=== PATIENT | male | born 1945 | race Caucasian/White ===

== ENCOUNTER 2018-08-01 11:27 | Emergency (ER) | payer MEDICARE, OTHER ==
--- NOTE | 2018-08-01 12:05 | RAD ---
Chest one view HISTORY: Chest injury. Pain. FINDINGS: Cardiac silhouette is magnified by projection. Pulmonary vasculature upper limits of normal . Mediastinum is midline. No lobar consolidation or evidence of pneumothorax. conveyor monitor leads overlie the chest. IMPRESSION: No active cardiopulmonary
--- NOTE | 2018-08-01 12:05 | CT ---
Exam: Head CT without contrast HISTORY: Trauma. Fall. Pain. COMPARISON: none FINDINGS: Hemorrhage: No intraparenchymal hemorrhage or extra-axial hematoma. Brain parenchyma: Age-appropriate atrophy. White matter hypodensities due to chronic small vessel isc hemic change. 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 Ventricular system: Ventricles and sulci are patent and symmetric. Calvarium: No fractures. Previous left calvarial craniotomy changes are noted. Sinuses and mastoid air cells: Adequate aeration. IMPRESSION: No intracranial post traumatic sequelae.
[2018-08-01 12:23] LABS: Bilirubin Negative (Negative); Blood, Urine Negative (Negative); Clarity Clear (Clear); Glucose, Urine (Dipstick) Negative (Negative); Leukocyte Negative (Negative); Nitrite Negative (Negative); Protein, Urine (Dipstick) 30 mg/dL (Neg-Trace); Urobilinogen 0.2 mg/dL (0.2-1.0)
[2018-08-01 12:24] LABS: Specific Gravity, Urine 1.037 (1.002-1.036)
[2018-08-01 12:27] LABS: #Basophils 0.1 thou/uL (0.0-0.2); #Eosinphils 0.1 thou/uL (0.0-0.7); #Lymphocytes 1.4 thou/uL (1.20-3.40); #Monocytes 0.4 thou/uL (0.11-0.59); #Neutrophils 2.9 thou/uL (1.40-6.50); %Basophils 1.2 % (0.0-1.0); %Eosinophils 2.4 % (0.0-10.0); %Lymphocytes 29.6 % (21.0-51.0); %Neutrophils 58.8 % (42.0-75.0); Hemoglobin 13.2 g/dL (14.0-18.0); Mean Corpuscular HGB CONC 31.9 g/dL (32.0-36.0); Mean Corpuscular Hemoglobin 28.5 pg (27.0-31.0); Mean Corpuscular Volume 89.2 fL (78.0-98.0); Platelet Count 197 thou/uL (130-400); RBC Distribution Width 12.1 % (11.5-14.5); Red Blood Cell (RBC) Count 4.64 mill/uL (4.70-6.10); White Blood Cell (WBC) Count 4.9 thou/uL (4.8-10.8)
[2018-08-01 12:30] LABS: RBC/HPF 0-3 HPF (0-3); Squamous Epithelial 0-3 HPF (0-3)
[2018-08-01 12:31] LABS: Bacteria/HPF None Seen HPF (None Seen)
[2018-08-01 12:38] LABS: ALT (SGPT) 19 U/L (8-55); AST (SGOT) 32 U/L (5-34); Alkaline Phosphatase 101 U/L (40-150); Anion Gap 16 mmol/L (10-20); BUN (Urea Nitrogen) 23 mg/dL (8.4-25.7); Bilirubin, Total 0.3 mg/dL (0.2-1.2); CK (CPK) 75 U/L (30-200); Calc. Creatinine Clearance 0 mL/min (70-130); Calcium 9.4 mg/dL (7.8-10.44); Carbon Dioxide 20 mmol/L (23-31); Chloride 109 mmol/L (98-107); Estimated GFR-MDRD 60; Globulin 2.9 g/dL (2.4-3.5); Glucose 153 mg/dL (83-110); Potassium 4.1 mmol/L (3.5-5.1); Protein, Total 6.9 g/dL (5.8-8.1); Sodium 141 mmol/L (136-145)
[2018-08-01] MEDS ORDERED: Ibuprofen 800 MG TAB ONE (12:47)
[2018-08-01] MEDS ORDERED: Sodium Chloride 0.9% 0 ML ONE (13:15)
[2018-08-01] MEDS ORDERED: Sodium Chloride 0.9% 500 ML ONE (13:16)
--- NOTE | 2018-08-01 13:26 | CT ---
CT abdomen and pelvis noncontrast HISTORY: Fall. Abdomen injury. FINDINGS: Mild atelectasis at the lung bases. Calcification throughout the arterial structures. No ev idence of urinary tract obstruction or calcification. Lack of contrast limits evaluation for other abnormalities. Postoperative and degenerative changes of the lumbar spine. Urinary bladder is intact. Prostate gland surgically absent. Diverticula arise from the colon without adjacent inflammation. Cysts of the right kidney. Small nonobstructive loop of small bowel extends through an umbilical hernia. IMPRESSION: No acute traumatic injury is demonstrated. Diverticulosis. No evidence of diverticulitis. Umbilical hernia contains a small amount of small bowel. Nonobstructed.
== END 2018-08-01 17:15 | disposition home or self-care (01) ==
LOC: NAV ERS 11:27
DX: S05.11XA Contusion of eyeball and orbital tissues, right eye, initial encounter (principal); I48.91 Unspecified atrial fibrillation; E78.5 Hyperlipidemia, unspecified; I10 Essential (primary) hypertension; F31.9 Bipolar disorder, unspecified; Z87.891 Personal history of nicotine dependence; Z79.899 Other long term (current) drug therapy; V89.9XXA Person injured in unspecified vehicle accident, initial encounter
CPT/HCPCS: 70450; 71045; 74176; 80053; 81003; 81015; 82550; 83605; 84484; 85025; 93005; 96360; J7050

== ENCOUNTER 2022-10-14 17:33 | Emergency (ER) | payer MEDICARE ==
[2022-10-14 18:04] LABS: #Basophils 0.1 thou/uL (0.0-0.2); #Eosinphils 0.1 thou/uL (0.0-0.7); #Lymphocytes 2.5 thou/uL (1.20-3.40); #Monocytes 0.8 thou/uL (0.11-0.59); #Neutrophils 4.7 thou/uL (1.40-6.50); %Basophils 1.1 % (0.0-1.0); %Eosinophils 1.8 % (0.0-10.0); %Lymphocytes 30.7 % (21.0-51.0); %Monocytes 9.3 % (0.0-10.0); %Neutrophils 57.2 % (42.0-75.0); Hemoglobin 18.6 g/dL (14.0-18.0); Mean Corpuscular HGB CONC 32.8 g/dL (32.0-36.0); Mean Corpuscular Hemoglobin 29.8 pg (27.0-31.0); Mean Corpuscular Volume 90.7 fl (78.0-98.0); Mean Platelet Volume 7.8 fL (7.4-10.4); Platelet Count 252 10x3/uL (130-400); RBC Distribution Width 11.8 % (11.5-14.5); Red Blood Cell (RBC) Count 6.26 mill/uL (4.70-6.10); White Blood Cell (WBC) Count 8.3 10x3/uL (4.8-10.8)
[2022-10-14 18:24] LABS: Acetaminophen Less than 10 mcg/mL (10.0-30.0); Salicylate Less than 8.0 mg/dL (15.0-30.0)
[2022-10-14 18:26] LABS: ALT (SGPT) 22 U/L (8-55); AST (SGOT) 23 U/L (5-34); Albumin 4.8 g/dL (3.4-4.8); Alkaline Phosphatase 134 U/L (40-110); Anion Gap 19 mmol/L (10-20); BUN (Urea Nitrogen) 19 mg/dL (8.4-25.7); Bilirubin, Total 1.2 mg/dL (0.2-1.2); Calc. Creatinine Clearance 0 mL/min (70-130); Calcium 10.1 mg/dL (7.8-10.44); Carbon Dioxide 25 mmol/L (23-31); Chloride 100 mmol/L (98-107); Estimated GFR 41; Globulin 3.7 g/dL (2.4-3.5); Glucose 167 mg/dL (83-110); Potassium 3.8 mmol/L (3.5-5.1); Protein, Total 8.5 g/dL (5.8-8.1); Sodium 140 mmol/L (136-145)
[2022-10-14 18:28] LABS: Alcohol Less than 10.0 mg/dL (Less than 10)
[2022-10-14 18:51] LABS: Amphetamine Not Detected (NotDetected); Barbiturates Screen Not Detected (NotDetected); Benzodiazepine Screen Not Detected (NotDetected); Cocaine Metabolite Screen Not Detected (NotDetected); Methadone Not Detected (NotDetected); Methamphetamine Not Detected (NotDetected); Opiate Screen Not Detected (NotDetected); Oxycodone Screen Not Detected (NotDetected); Phencyclidine (PCP) Not Detected (NotDetected); THC/Cannabinoid Screen Not Detected (NotDetected); Tricyclic Screen Not Detected (NotDetected)
[2022-10-15] MEDS ORDERED: QUEtiapine 100 MG TAB ONE ×2 (01:28→19:27)
[2022-10-15] MEDS ORDERED: Carvedilol 3.125 MG TAB ONE ×3 (01:31→19:27)
[2022-10-15] MEDS ORDERED: lamoTRIgine 25 MG TAB ONE ×2 (01:34→19:27)
[2022-10-15] MEDS ORDERED: QUEtiapine 100 MG TAB PO SCH ×2 (01:45→21:00)
[2022-10-15] MEDS ORDERED: Carvedilol 6.25 MG TAB PO SCH ×2 (01:45→18:45)
[2022-10-15] MEDS ORDERED: lamoTRIgine 100 MG TAB PO SCH ×2 (01:45→18:45)
[2022-10-15] MEDS ORDERED: Chlorthalidone 25 MG TAB PO SCH ×2 (01:45→12:00)
[2022-10-15] MEDS ORDERED: Citalopram 20 MG TAB PO SCH (18:45)
[2022-10-15] MEDS ORDERED: Atorvastatin Calcium 40 MG TAB PO SCH (18:45)
[2022-10-15] MEDS ORDERED: CeleCOXIB 100 MG CAP PO SCH (18:45)
[2022-10-15] MEDS ORDERED: CeleCOXIB 100 MG CAP ONE (19:27)
== END 2022-10-16 11:16 ==
LOC: NAV ERS 17:33
DX: R45.851 Suicidal ideations (principal); I11.0 Hypertensive heart disease with heart failure; I50.9 Heart failure, unspecified; I48.91 Unspecified atrial fibrillation; E78.00 Pure hypercholesterolemia, unspecified; F03.90 Unspecified dementia, unspecified severity, without behavioral disturbance, psychotic disturbance, mood disturbance, and anxiety; Z86.73 Personal history of transient ischemic attack (TIA), and cerebral infarction without residual deficits; Z87.891 Personal history of nicotine dependence; Z79.899 Other long term (current) drug therapy
CPT/HCPCS: 36415; 80053; 80306; 80307; 85025; 93005